=== PATIENT | female | born 1950 | race Caucasian/White ===

== ENCOUNTER → 2018-05-09 | Day surgery (SDC) | payer OTHER ==
--- NOTE | 2018-05-09 21:16 | OP ---
DATE OF OPERATION: 05/09/2018 PREOPERATIVE DIAGNOSIS: Large right breast mass as well as right axillary lymph node, suspicious. POSTOPERATIVE DIAGNOSIS: Large right breast mass as well as right axillary lymph node, suspicious. PROCEDURE: Right breast ultrasound-guided core biopsy and right axillary lymph node ultrasound-guided core biopsy, each with clip placements. ANESTHESIA: Local. ATTENDING SURGEON: Bita Cano MD ESTIMATED BLOOD LOSS: Minimal. COMPLICATIONS: None. PROCEDURE: Patient was made aware of the risks and benefits of the procedure and consented. She was placed in a supine position and the right axilla was approached first. Under sterile conditions, with 1% lidocaine for local anesthesia, a small rich was made in the skin. Using a 13-gauge suction biopsy device under ultrasound guidance, multiple cores were obtained and submitted to Pathology. Likewise, under ultrasound guidance, a 15-gauge hydroclip barrel-shaped marker was placed, well tolerated by patient. Steri-Strip and a sterile bandage was applied. The right breast was then approached next. Under sterile conditions, with 1% lidocaine for local anesthesia, a small rich was made in the skin. Using a 13-gauge suction biopsy device under ultrasound guidance, multiple cores were obtained and submitted to Pathology. Likewise, under ultrasound guidance, a bow-tie clip was placed into the biopsy region. Well tolerated by patient. Steri-Strips and a sterile bandage was applied. Will contact her with the results. BITA CANO M.D. [id number]
--- NOTE | 2018-05-10 16:35 | PATH ---
Surgical Pathology Report Patient Name: NOHEMI PIERRE [facility]. Rec. #: [id number] /Age/Gender: 1950 (Age: 67) / F Account: [id number] Location: [facility] Taken: 05/09/2018 Received: 05/09/2018 Reported: 05/10/2018 Physicians: Bita Cano M.D. Specimen(s) Received A: RIGHT BREAST CORE BIOPSY 1100 O'CLOCK RETRO B: RIGHT AXILLARY LYMPH NODE Clinical History Palpable mass Mammographic findings/ultrasound findings: Highly suspicious/malignant Final Diagnosis A. BREAST, RIGHT, 11:00, SITE 2, RETROAREOLAR, CORE BIOPSY: INVASIVE DUCTAL CARCINOMA, MODERATE TO POORLY DIFFERENTIATED, WITH FOCAL MUCINOUS FEATURES. TUMOR MEASURES ATLEAST 1.5 CM IN THIS MATERIAL. B. AXILLARY LYMPH NODE, RIGHT, SITE 1, CORE BIOPSY: CARCINOMA, MEASURING ATLEAST 1.4 CM IN THIS MATERIAL. NO LYMPHOID TISSUE IDENTIFIED. SEE COMMENT. Comment: Part A, Immunohistochemical stains performed and interpreted at [facility] show the carcinoma is positive for E-cadherin, supportive of ductal phenotype. The tumor from both parts: breast and axillary lymph node are morphologically similar. Results of Estrogen Receptor (ER) and Progesterone Receptor (MO) studies performed on block "A" at [facility] are as follows: ER (clone [id number] mouse monoclonal antibody by [employer]):~ 99% nuclear staining with strong intensity (Positive). MO (clone16 mouse monoclonal antibody by [employer]): ~10-15% nuclear staining with strong intensity (Positive). Her2 (IHC) & Ki-67 are pending and will be reported separately. Positive and negative controls (internal if applicable) show appropriate results. Formalin fixation and cold ischemic times are within current ASCO/CAP recommendations for ER, MO and Her2 testing. Electronically Signed Lor Calderon M.D. Addendum Reported: 05/11/2018 Addendum Diagnosis Results of Her2 (IHC) & Ki-67 studies performed at [place], [place] ([id number]) are as follows: Her2 IHC (EP3 from [employer], formerly known as [id number], using [employer] Polymer Refine detection kit): 1+ (Negative). Ki-67: ~20% (Intermediate proliferative index). Positive and negative controls (internal if applicable) show appropriate results. Lor Calderon M.D. Gross Description A. Received in formalin labeled "site 2 right breast 11:00 retro," are 5 zambrano, cylindrical portions of fibroadipose tissue ranging from 1.1-1.7 cm in length and averaging 0.1 cm in diameter. The specimen is admixed with blood clot. The specimen is entirely submitted in one cassette. B. Received in formalin labeled "site 1 right axillary lymph node," are 5 zambrano-yellow, cylindrical portions of fibroadipose tissue ranging from 1.1-1.6 cm in length and averaging 0.1 cm in diameter. The specimens are submitted in toto in one cassette. Total formalin fixation time: Approximately 6 hours 05/09/201805/09/2018
== END | disposition home or self-care (01) ==
LOC: FRADUS-SUR 09:20
PROVIDERS: ATTEND Surgery Surgical Oncology
PROC: 0HBT3ZX Excision of Right Breast, Percutaneous Approach, Diagnostic (ICD-10-PCS; principal; 2018-05-09)
PROC: 07B53ZX Excision of Right Axillary Lymphatic, Percutaneous Approach, Diagnostic (ICD-10-PCS; 2018-05-09)
PROC: BH47ZZZ Ultrasonography of Upper Extremity (ICD-10-PCS; 2018-05-09)
DX: C50.211 Malignant neoplasm of upper-inner quadrant of right female breast (principal); C96.9 Malignant neoplasm of lymphoid, hematopoietic and related tissue, unspecified; N63.12 Unspecified lump in the right breast, upper inner quadrant; R59.9 Enlarged lymph nodes, unspecified
CPT/HCPCS: 19083; 76942-TC; 87899; 88305-TC; 88342-TC; A4648